=== PATIENT | male | born 1975 | race American Indian/Alaskan Native ===

== ENCOUNTER 2018-04-24 17:07 | Emergency (ER) | payer OTHER ==
[2018-04-24] MEDS ORDERED: ATIVAN ONE ×2 (17:09→17:20)
[2018-04-24] MEDS ORDERED: ATIVAN IV ONE ×4 (17:20→19:24)
[2018-04-24] MEDS ORDERED: NACL 0.9% 1000 ML 1,000 ML IV ONE ×2 (17:24→18:56)
--- NOTE | 2018-04-24 17:31 | Emergency Department Report ---
ED General Adult HPI - General Stated complaint: SEIZURE Time Seen by Provider: 04/24/18 17:13 Source: RN/MD - History of Present Illness Initial comments: mr bauer is a 43 year-old man who had witnessed seizure on hospital property. Brought in by nursing staff. his phone rang and some information was received from caller. He has hx of epilepsy and takes tegretol and valium as needed when he thinks he is going to have a seizure. Caller reports he did not take today. Patient unable to provide history. Was witnessed tonic/clonic seizure. - Related Data Allergies Allergy/AdvReac Type Severity Reaction Status Date / Time Unable to Assess Allergy Unverified 04/24/18 17:56 ED Review of Systems ROS: Stated complaint: SEIZURE Other details as noted in HPI Comment: Unobtainable due to pts medical conditions ED Physical Exam - General Limitations: Altered Mental Status General appearance: obtunded, other (breathing on own) - Head Head exam: Present: atraumatic, normocephalic - Eye Eye exam: Present: normal appearance, PERRL. Absent: conjunctival injection, periorbital swelling, periorbital tenderness - ENT ENT exam: Present: normal exam, normal orophraynx - Neck Neck exam: Present: normal inspection, full ROM. Absent: lymphadenopathy - Respiratory Respiratory exam: Present: normal lung sounds bilaterally. Absent: respiratory distress, wheezes, rales, accessory muscle use - Cardiovascular Cardiovascular Exam: Present: normal rhythm, tachycardia, normal heart sounds. Absent: rubs, gallop - GI/Abdominal GI/Abdominal exam: Present: soft. Absent: distended, tenderness, guarding, rebound - Extremities Exam Extremities exam: Present: normal inspection, normal capillary refill. Absent: tenderness - Back Exam Back exam: Present: normal inspection. Absent: tenderness, paraspinal tenderness, vertebral tenderness - Neurological Exam Neurological exam: Present: altered - Skin Skin exam: Present: warm, dry, normal color ED Course Vital Signs 04/24/18 04/24/18 17:20 18:25 Temperature 98.6 F 98.6 F Pulse Rate 115 H 98 H Respiratory 28 H 26 H Rate Blood Pressure 145/80 Blood Pressure 145/80 113/79 [Right] O2 Sat by Pulse 99 100 Oximetry ED Medical Decision Making - Lab Data Result diagrams: 04/24/18 17:35 06/28/18 17:35 Lab Results 04/24/18 04/24/18 04/24/18 Range/Units 17:35 17:35 17:35 WBC 7.5 (4.5-11.0) K/mm3 RBC 4.56 (3.65-5.03) M/mm3 Hgb 13.3 (11.8-15.2) gm/dl Hct 40.7 (35.5-45.6) % MCV 89 (84-94) fl MCH 29 (28-32) pg MCHC 33 (32-34) % RDW 13.2 (13.2-15.2) % Plt Count 224 (140-440) K/mm3 Lymph % (Auto) 21.5 (13.4-35.0) % Swisher % (Auto) 5.0 (0.0-7.3) % Eos % (Auto) 0.2 (0.0-4.3) % Baso % (Auto) 0.3 (0.0-1.8) % Lymph # 1.6 (1.2-5.4) K/mm3 Swisher # 0.4 (0.0-0.8) K/mm3 Eos # 0.0 (0.0-0.4) K/mm3 Baso # 0.0 (0.0-0.1) K/mm3 Seg Neutrophils % 73.0 H (40.0-70.0) % Seg Neutrophils # 5.4 (1.8-7.7) K/mm3 Sodium 139 (137-145) mmol/L Potassium 4.2 (3.6-5.0) mmol/L Chloride 94.0 L (98-107) mmol/L Carbon Dioxide 15 L (22-30) mmol/L Anion Gap 34 mmol/L BUN 11 (9-20) mg/dL Creatinine 1.2 (0.8-1.5) mg/dL Estimated GFR > 60 ml/min BUN/Creatinine Ratio 9 % Glucose 462 H (75-100) mg/dL Calcium 9.2 (8.4-10.2) mg/dL Total Bilirubin 0.20 (0.1-1.2) mg/dL AST 20 (5-40) units/L ALT 19 (7-56) units/L Alkaline Phosphatase 88 (35-129) units/L Total Creatine Kinase 222 H (55-170) units/L Total Protein 7.3 (6.3-8.2) g/dL Albumin 4.3 (3.9-5) g/dL Albumin/Globulin Ratio 1.4 % Carbamazepine 2.0 L (4-12) ug/mL - EKG Data 1741; HR 115, sinus tach, normal axis, intervals wnl, no ST changes concerning for acute ischemia - Medical Decision Making mr bauer is a 43 year-old man who presents after witnessed seizure. seen seizing near ED entrance. Spoke with /gf via phone who reports he has epilepsy and takes meds as he feels he needs them. Tegretol and valium. Seizure abated with 2mg ativan. Moving all four extremities, sinus tach on monitor. Was combative while post-ictal, given 2mg ativan again. Sleeping soundly. Labs with hyperglycemia, mild CPK elevation. otherwise unremarkable. Given 2L NS adn 10u subq insulin. Repeat blood sugar 327. Patient now AAOx3. reports that eh does indeed use his seizure meds as he feels he may have a seizure. he has been told he has diabetes in the past, takes no meds. Is ambulatory. I encourage him to take his home seizure meds as prescribed. Given 200mg tegretol here. Safe for dc to home. Will start on metformin. Given care instructions, return precautions. pcp follow-up next week. DC to home Critical care attestation.: If time is entered above; I have spent that time in minutes in the direct care of this critically ill patient, excluding procedure time. ED Disposition Clinical Impression: Seizure, Hyperglycemia Disposition: DC-01 TO HOME OR SELFCARE Is pt being admited?: No Condition: Stable Instructions: Epilepsy (ED), Diabetes Mellitus Type 2 in Adults (ED) Referrals: JO ARIAS MD [Staff Physician] - 3-5 Days
[2018-04-24 17:59] LABS: Basophils % (Auto) 0.3 % (0.0-1.8); Eosinophils % (Auto) 0.2 % (0.0-4.3); Hematocrit 40.7 % (35.5-45.6); Hemoglobin 13.3 gm/dl (11.8-15.2); Lymphocytes # (Auto) 1.6 K/mm3 (1.2-5.4); Lymphocytes % (Auto) 21.5 % (13.4-35.0); Mean Corpuscular HGB Conc 33 % (32-34); Mean Corpuscular Hemoglobin 29 pg (28-32); Mean Corpuscular Volume 89 fl (84-94); Monocytes # (Auto) 0.4 K/mm3 (0.0-0.8); Platelet Count 224 K/mm3 (140-440); Red Blood Count 4.56 M/mm3 (3.65-5.03); Red Cell Distribution Width 13.2 % (13.2-15.2)
[2018-04-24 18:15] LABS: Alanine Aminotransferase 19 units/L (7-56); Albumin 4.3 g/dL (3.9-5); BUN/Creatinine Ratio 9; Blood Urea Nitrogen 11 mg/dL (9-20); Calcium 9.2 mg/dL (8.4-10.2); Hemolysis Index 39
[2018-04-24] MEDS ORDERED: HumuLIN R SUB-Q ONE (18:23)
[2018-04-24 20:19] VITALS: BP 120/65
== END 2018-04-24 21:34 | disposition home or self-care (01) ==
LOC: ED 17:07
DX: E11.65 Type 2 diabetes mellitus with hyperglycemia (principal); G40.909 Epilepsy, unspecified, not intractable, without status epilepticus
CPT/HCPCS: 36415; 80053; 80156; 82550; 82962; 85025; 93005; 93010; 96361; 96372; 96374; 99284; J2060; J7030; J1815

== ENCOUNTER 2018-11-08 16:04 | Emergency (ER) | payer OTHER ==
[2018-11-08] MEDS ORDERED: ATIVAN IV ONE (16:27)
[2018-11-08] MEDS ORDERED: TYLENOL PO PRN (16:27)
[2018-11-08] MEDS ORDERED: NACL 0.9% 1000 ML IV ONE (16:27)
[2018-11-08] MEDS ORDERED: KEPPRA 1,000 MG/NS 0.75% 100ML 1,000 MG/100 ML BAG IV ONE (16:29)
[2018-11-08 16:44] LABS: Hematocrit 42.3 % (35.5-45.6); Hemoglobin 14.6 gm/dl (11.8-15.2); Mean Corpuscular HGB Conc 35 % (32-34); Mean Corpuscular Volume 87 fl (84-94); Platelet Count 223 K/mm3 (140-440); Red Blood Count 4.89 M/mm3 (3.65-5.03); Red Cell Distribution Width 12.8 % (13.2-15.2)
--- NOTE | 2018-11-08 16:47 | Emergency Department Report ---
ED General Adult HPI - General Chief complaint: Seizure Stated complaint: SEIZURE Time Seen by Provider: 11/08/18 16:27 Source: EMS Mode of arrival: Stretcher Limitations: Altered Mental Status - History of Present Illness Initial comments: Patient is a 43-year-old male who is he is secondary to a seizure. Patient had a clonic tonic seizure prior to arrival. Patient is a history of seizures and is prescribed Tegretol which the patient states even if his still slightly postictal phase. He does not take regularly because he just doesn't want to. Patient states is not taking it because of any adverse side effects. Patient had a seizure prior to arrival. Patient's family states that though they did not believe he had any head trauma. Patient is denying cough cold congestion neck stiffness headache nausea vomiting or diarrhea at this time. Patient was noted on arrival to have a fever of 102. Patient's girlfriend states he complained of a minor headache yesterday but patient states he has no pain at this time. - Related Data Previous Rx's Medication Instructions Recorded Last Taken Type metFORMIN [Glucophage] 500 mg PO QDAY #30 tab 04/24/18 Unknown Rx carBAMazepine [TEGretol] 200 mg PO Q12HR #60 tab 11/08/18 Unknown Rx metFORMIN [Glucophage] 500 mg PO BID #60 tablet 11/08/18 Unknown Rx Allergies Allergy/AdvReac Type Severity Reaction Status Date / Time No Known Allergies Allergy Verified 11/08/18 16:58 ED Review of Systems ROS: Stated complaint: SEIZURE Other details as noted in HPI Comment: All other systems reviewed and negative ED Past Medical Hx - Past Medical History Previous Medical History?: Yes Hx Seizures: Yes (Takes Tegretol) - Surgical History Past Surgical History?: No - Social History Smoking Status: Unknown if ever smoked Substance Use Type: None - Medications Home Medications: Home Medications Medication Instructions Recorded Confirmed Last Taken Type metFORMIN [Glucophage] 500 mg PO QDAY #30 tab 04/24/18 Unknown Rx carBAMazepine [TEGretol] 200 mg PO Q12HR #60 tab 11/08/18 Unknown Rx metFORMIN [Glucophage] 500 mg PO BID #60 tablet 11/08/18 Unknown Rx ED Physical Exam - General Limitations: Altered Mental Status (pt showing just slight delay in answering questions) General appearance: alert, in no apparent distress - Head Head exam: Present: atraumatic, normocephalic - Eye Eye exam: Present: normal appearance, PERRL, EOMI - ENT ENT exam: Present: normal exam, mucous membranes moist - Neck Neck exam: Present: normal inspection, full ROM. Absent: meningismus - Respiratory Respiratory exam: Present: normal lung sounds bilaterally. Absent: respiratory distress, wheezes, rales, rhonchi - Cardiovascular Cardiovascular Exam: Present: regular rate, normal rhythm. Absent: systolic murmur, diastolic murmur, rubs, gallop - GI/Abdominal GI/Abdominal exam: Present: soft, normal bowel sounds. Absent: distended, tenderness, guarding, rebound, rigid - Rectal Rectal exam: Present: deferred - Extremities Exam Extremities exam: Present: normal inspection - Back Exam Back exam: Present: normal inspection - Neurological Exam Neurological exam: Present: alert, oriented X3, CN II-XII intact, reflexes normal. Absent: altered, motor sensory deficit - Psychiatric Psychiatric exam: Present: normal affect, normal mood - Skin Skin exam: Present: warm, dry, intact, normal color. Absent: rash ED Course Vital Signs 11/08/18 11/08/18 16:24 17:30 Temperature 102 F H Pulse Rate 153 H 120 H Respiratory 16 16 Rate Blood Pressure 149/90 Blood Pressure 119/78 [Right] O2 Sat by Pulse 100 100 Oximetry ED Medical Decision Making - Lab Data Result diagrams: 11/08/18 16:31 11/08/18 16:31 She was hydrated his heart rate did respond appropriately and is down trending. At the time of discharge heart rate is 105. Patient's received dose of Keppra and Ativan. Patient was monitored until he was able to lower emergency department. Patient and I had a long discussion regarding medical noncompliance. Patient is to restart his Tegretol. Patient also to be restarted on metformin twice a day. Patient is given neurology and internal medicine for follow-up. Lab Results 11/08/18 11/08/18 11/08/18 Range/Units 16:31 16:31 16:31 WBC 9.8 (4.5-11.0) K/mm3 RBC 4.89 (3.65-5.03) M/mm3 Hgb 14.6 (11.8-15.2) gm/dl Hct 42.3 (35.5-45.6) % MCV 87 (84-94) fl MCH 30 (28-32) pg MCHC 35 H (32-34) % RDW 12.8 L (13.2-15.2) % Plt Count 223 (140-440) K/mm3 Add Manual Diff Complete Total Counted 100 Seg Neutrophils % Columnist Seg Neuts % (Manual) 81.0 H (40.0-70.0) % Band Neutrophils % 6.0 % Lymphocytes % (Manual) 4.0 L (13.4-35.0) % Reactive Lymphs % (Man) 0 % Monocytes % (Manual) 9.0 H (0.0-7.3) % Eosinophils % (Manual) 0 (0.0-4.3) % Basophils % (Manual) 0 (0.0-1.8) % Metamyelocytes % 0 % Myelocytes % 0 % Promyelocytes % 0 % Blast Cells % 0 % Nucleated RBC % Not Reportable Seg Neutrophils # Man 7.9 H (1.8-7.7) K/mm3 Band Neutrophils # 0.6 K/mm3 Lymphocytes # (Manual) 0.4 L (1.2-5.4) K/mm3 Abs React Lymphs (Man) 0.0 K/mm3 Monocytes # (Manual) 0.9 H (0.0-0.8) K/mm3 Eosinophils # (Manual) 0.0 (0.0-0.4) K/mm3 Basophils # (Manual) 0.0 (0.0-0.1) K/mm3 Metamyelocytes # 0.0 K/mm3 Myelocytes # 0.0 K/mm3 Promyelocytes # 0.0 K/mm3 Blast Cells # 0.0 K/mm3 WBC Morphology Not Reportable Hypersegmented Neuts Not Reportable Hyposegmented Neuts Not Reportable Hypogranular Neuts Not Reportable Smudge Cells Not Reportable Toxic Granulation Not Reportable Toxic Vacuolation Not Reportable Dohle Bodies Not Reportable Pelger-Huet Anomaly Not Reportable Blanco Rods Not Reportable Platelet Estimate Appears normal Clumped Platelets Not Reportable Plt Clumps, EDTA Not Reportable Large Platelets Not Reportable Giant Platelets Not Reportable Platelet Satelliting Not Reportable Plt Morphology Comment Not Reportable RBC Morphology Not Reportable Dimorphic RBCs Not Reportable Polychromasia Not Reportable Hypochromasia Not Reportable Poikilocytosis Few Anisocytosis Not Reportable Microcytosis Not Reportable Macrocytosis Not Reportable Spherocytes Not Reportable Pappenheimer Bodies Not Reportable Sickle Cells Not Reportable Target Cells Not Reportable Tear Drop Cells Not Reportable Ovalocytes Not Reportable Helmet Cells Not Reportable Gandhi-[place] Bodies Not Reportable [place] Rings Not Reportable Aurora Cells Not Reportable Bite Cells Not Reportable Crenated Cell Not Reportable Elliptocytes Not Reportable Acanthocytes (Spur) Not Reportable Rouleaux Not Reportable Hemoglobin C Crystals Not Reportable Schistocytes Not Reportable Malaria parasites Not Reportable Adolfo Bodies Not Reportable Hem Pathologist Commnt No Sodium 135 L (137-145) mmol/L Potassium 4.2 (3.6-5.0) mmol/L Chloride 95.0 L (98-107) mmol/L Carbon Dioxide 19 L (22-30) mmol/L Anion Gap 25 mmol/L BUN 12 (9-20) mg/dL Creatinine 1.2 (0.8-1.5) mg/dL Estimated GFR > 60 ml/min BUN/Creatinine Ratio 10 % Glucose 296 H (75-100) mg/dL Lactic Acid 7.30 H* (0.7-2.0) mmol/L Calcium 8.6 (8.4-10.2) mg/dL Total Bilirubin 0.40 (0.1-1.2) mg/dL AST 16 (5-40) units/L ALT 22 (7-56) units/L Alkaline Phosphatase 75 (35-129) units/L Total Protein 7.1 (6.3-8.2) g/dL Albumin 4.4 (3.9-5) g/dL Albumin/Globulin Ratio 1.6 % 11/08/18 11/08/18 Range/Units 17:10 18:10 WBC (4.5-11.0) K/mm3 RBC (3.65-5.03) M/mm3 Hgb (11.8-15.2) gm/dl Hct (35.5-45.6) % MCV (84-94) fl MCH (28-32) pg MCHC (32-34) % RDW (13.2-15.2) % Plt Count (140-440) K/mm3 Add Manual Diff Total Counted Seg Neutrophils % Seg Neuts % (Manual) (40.0-70.0) % Band Neutrophils % % Lymphocytes % (Manual) (13.4-35.0) % Reactive Lymphs % (Man) % Monocytes % (Manual) (0.0-7.3) % Eosinophils % (Manual) (0.0-4.3) % Basophils % (Manual) (0.0-1.8) % Metamyelocytes % % Myelocytes % % Promyelocytes % % Blast Cells % % Nucleated RBC % Seg Neutrophils # Man (1.8-7.7) K/mm3 Band Neutrophils # K/mm3 Lymphocytes # (Manual) (1.2-5.4) K/mm3 Abs React Lymphs (Man) K/mm3 Monocytes # (Manual) (0.0-0.8) K/mm3 Eosinophils # (Manual) (0.0-0.4) K/mm3 Basophils # (Manual) (0.0-0.1) K/mm3 Metamyelocytes # K/mm3 Myelocytes # K/mm3 Promyelocytes # K/mm3 Blast Cells # K/mm3 WBC Morphology Hypersegmented Neuts Hyposegmented Neuts Hypogranular Neuts Smudge Cells Toxic Granulation Toxic Vacuolation Dohle Bodies Pelger-Huet Anomaly Blanco Rods Platelet Estimate Clumped Platelets Plt Clumps, EDTA Large Platelets Giant Platelets Platelet Satelliting Plt Morphology Comment RBC Morphology Dimorphic RBCs Polychromasia Hypochromasia Poikilocytosis Anisocytosis Microcytosis Macrocytosis Spherocytes Pappenheimer Bodies Sickle Cells Target Cells Tear Drop Cells Ovalocytes Helmet Cells Gandhi-[place] Bodies [place] Rings Aurora Cells Bite Cells Crenated Cell Elliptocytes Acanthocytes (Spur) Rouleaux Hemoglobin C Crystals Schistocytes Malaria parasites Adolfo Bodies Hem Pathologist Commnt Sodium (137-145) mmol/L Potassium (3.6-5.0) mmol/L Chloride (98-107) mmol/L Carbon Dioxide (22-30) mmol/L Anion Gap mmol/L BUN (9-20) mg/dL Creatinine (0.8-1.5) mg/dL Estimated GFR ml/min BUN/Creatinine Ratio % Glucose (75-100) mg/dL Lactic Acid 3.20 H* 1.60 (0.7-2.0) mmol/L Calcium (8.4-10.2) mg/dL Total Bilirubin (0.1-1.2) mg/dL AST (5-40) units/L ALT (7-56) units/L Alkaline Phosphatase (35-129) units/L Total Protein (6.3-8.2) g/dL Albumin (3.9-5) g/dL Albumin/Globulin Ratio % - Medical Decision Making Patient's lactic acid and temperature elevation likely secondary to seizures. There is no evidence of any infectious disease process this patient. With hydration lactic acid is down trending. Critical care attestation.: If time is entered above; I have spent that time in minutes in the direct care of this critically ill patient, excluding procedure time. ED Disposition Clinical Impression: Seizure, Hyperglycemia, Medical non-compliance Disposition: DC- TO HOME OR SELFCARE Is pt being admited?: No Does the pt Need Aspirin: No Condition: Stable Instructions: Epilepsy (ED), Diabetic Hyperglycemia (ED) Prescriptions: carBAMazepine [TEGretol] 200 mg PO Q12HR #60 tab metFORMIN [Glucophage] 500 mg PO BID #60 tablet Referrals: STEVEN MAGANA MD [Referring] - 3-5 Days YASHIRA BROWN MD [Referring] - 3-5 Days [facility] [Outside] - 3-5 Days Time of Disposition: 18:56
[2018-11-08 16:56] LABS: Alanine Aminotransferase 22 units/L (7-56); Albumin 4.4 g/dL (3.9-5); BUN/Creatinine Ratio 10; Blood Urea Nitrogen 12 mg/dL (9-20); Calcium 8.6 mg/dL (8.4-10.2); Hemolysis Index 7
[2018-11-08] MEDS ORDERED: ZITHROMAX 500 MG in NACL 0.9% 250ML 250 ML IV SCH (17:00)
[2018-11-08] MEDS ORDERED: ROCEPHIN/NS 2 GM/100 ML 2 GM/100 ML BAG IV SCH (17:00)
--- NOTE | 2018-11-08 17:33 | XRay Report ---
FINAL REPORT EXAM: XR CHEST 1V AP HISTORY: fever TECHNIQUE: Frontal chest radiograph. PRIORS: None. FINDINGS: The cardiomediastinal silhouette is normal. No focal consolidation. No pleural effusion. No pneumothorax. No acute osseous abnormality. IMPRESSION: No acute cardiopulmonary process.
[2018-11-08 17:36] LABS: Band Neutrophils # (Manual) 0.6 K/mm3; Basophils % (Manual) 0 % (0.0-1.8); Eosinophils % (Manual) 0 % (0.0-4.3); Total Cells Counted 100
[2018-11-08 17:37] LABS: Poikilocytosis Few
[2018-11-08 20:38] LABS: Bilirubin,Urine NEG (Negative); Blood,Urine NEG (Negative); Color,Urine Yellow (Yellow); Mucus,Urine FEW /HPF; Protein,Urine <15 mg/dL mg/dL (Negative); RBC,Urine < 1.0 /HPF (0.0-6.0); Urobilinogen,Urine < 2.0 mg/dL (<2.0)
[2018-11-08 21:20] VITALS: BP 115/81
== END 2018-11-08 21:20 | disposition home or self-care (01) ==
LOC: ED 16:04
DX: R56.9 Unspecified convulsions (principal); R73.9 Hyperglycemia, unspecified; Z91.14 Patient's other noncompliance with medication regimen
CPT/HCPCS: 36415; 71045; 80053; 81001; 82140; 85007; 85025; 87040; 93005; 93010; 96365; 96366; 96367; 96375; 99285; J0456; J0696; J1953; J2060; J7030; J7050